=== PATIENT | female | born 1960 ===

== ENCOUNTER → 2022-02-02 11:05 | Outpatient (BNVA) | payer OTHER, SELFPAY | PROVIDERS: PCP Internal Medicine; Visit Provider Dietitian, Registered | DX: E66.9 Obesity, unspecified (principal); K76.0 Fatty (change of) liver, not elsewhere classified; Z68.36 Body mass index [BMI] 36.0-36.9, adult; Z71.3 Dietary counseling and surveillance | CPT/HCPCS: 97802 ==

== ENCOUNTER 2024-03-05 11:22 | Outpatient (AMB) | payer MEDICARE, OTHER, SELFPAY ==
--- OUTSIDE RECORDS SUMMARY | 2024-03-05 11:43 | XMS_ITS | Continuity of Care Document ---
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 Care Team Information Receive r [phone] Problems Active Problems Provider Date Essential hypertension Parmjit Funk M.D. Ons et: 09/28/2021 Gastroesophageal reflux disease Parmjit Funk M.D. Onset: 09/28/2021 Hypercholesterolemia Parmjit Funk M.D. Onset : 09/28/2021 Arthritis Parmjit Funk M.D. Onset: Celestino thyroiditis Parmjit Funk M.D. Onse t: 09/28/2021 Hyperparathyroidism Parmjit Funk M.D. Onset: 09/28/2021 Asthma Parmjit Funk M.D. Onset: Osteopenia Parmjit Funk M.D. Onset: Social History Type Date Description Comments Sex Unknown Lives With Spouse ETOH Use Denies alcohol use Tobacco Use Start: Unknown Patient has never smoked Allergies and adverse reactions Active Allergies Criticality Reaction Severity Comments Date Bactrim Unable to assess criticality Facial swelling 09/28/2021 Medications Active Medications SIG Qnty Indications Ordering Provider Date Albuterol Sulfate(2.5mg/3ML) 0.083% Nebulizer Rigo Jarquin M.D. Levothyroxine Vtzgob937bru Tablets Unknown 0 000 Fluticasone Dcuaeaqllj10bsi/Act Suspension Shake Liquid And Use 2 Sprays In Each Nostril Daily Unknown Atorvastatin Oyneikf74le Tablets Take 1 Tablet By Mouth Daily Rigo Jarquin M.D. Tbvbxfyzlk12wb Tablets Rigo Gallegos M.D. Qqmvgyohxi00sq Capsules DR Take 1 Capsule By Mouth Every Day Rigo Jarquin M.D. Metoprolol Succinate ER50mg Tablets ER 24HR Take 1 Tablet By Mouth Daily Rigo Jarquin M.D. Hmpxcxtmys45ke Tablets Take 1 Tablet By Mouth Every Day Rigo Jarquin M.D. Hydralazine PTX88je Tablets Take 1 Tablet By Mouth Twice Daily Rigo Jarquin M.D. Montelukast Kdlwlo03ya Tablets Rigo Jarquin M.D. Proair PNX694(90Base) mcg/Act Aerosol Rigo Jarquin M.D. Vital Signs Date Vital Result Comment 09/28/2021 3:38pm BP Systolic 144 mmHg BP Diastolic 86 mmHg Heart Rate 87 /min Height 63 inches 5'3 Weight 232.25 lb BMI (Body Mass Index) 41.1 kg/m2 Medical Devices Description No Information Available Encounters Type Date Location Provider Dx Diagnosis Office Visit 09/28/2021 3:30p Main Office Parmjit Funk M.D. E03.9 Hypothyroidism, unspecified G57.10 Meralgia paresthetic a, unspecified lower limb Assessments Date Code Description Provider 09/28/2021 E03.9 Hypothyroidism, unspecified Parmjit Funk M.D. 09/28/2021 G57.10 Meralgia paresthetica, unspe cified lower limb Parmjit Funk M.D. Plan of Treatment 09/28/2021 - Parmjit Funk M.D.* E03.9 Hypothyroidism, unspecified * G57.10 Meralgia paresthetica, unspecified lower limb* New Labs:* TSH With Reflex To FT4, Scheduled: 02/22/22 * Calcium, Scheduled: 02/22/22 * Albumin, Scheduled: 02/22/22 Functional Status Description No Information Available Mental Status Description No Information Available Referrals Refer to Reason for Referral Status Appt Parmjit Reeder M.D. Created [address] [place] [address] Drive [address] [place] [address] [phone]
--- OUTSIDE RECORDS SUMMARY | 2024-03-05 11:43 | XMS_ITS | Continuity of Care Document ---
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 Immunization Series Date Given Administered By Site Reaction Lot Number CVX Code Drug Industrial Maintenance Tech Status Comments Source COVID-19 (MODERNA), MRNA, LNP-S, PF, 100 MCG/0.5 ML DOSE 2 2020 207 complet ed MOD; [id number]; 1 [facility] COVID-19 (MODERNA), MRNA, LNP-S, PF, 100 MCG/0.5 ML DOSE 1 2020 207 complet ed MOD; [id number]; IELD Social History Combined list of available smoking, tobacco, and other social history from Department of Defense and Veterans Affairs facilities. Social History Type Response Date Comment Sourc e This section is an empty social history section. [facility]
[2024-03-05 11:47] VITALS: BP 152/88; PULSE 61; O2SAT 99; BMI 37.7
--- NOTE | 2024-03-05 11:47 | MHC.OFFVIS ---
Vital Signs 03/05/24 11:47 Height 5 ft 6 in Weight 233 lb 7.512 oz BMI 37.7 BP 152/88 H Blood Pressure Location Lt brachial Position Sitting Pulse 61 Pulse Source Pulse Oximeter Pulse Oximetry (%) 99 Oxygen Delivery Method Room Air Intake Visit Reasons: Raynauds Intake Note: Patient presents for follow up on Raynaud's, and both her knees. Accompanied by: Grand Child Allergies sulfamethoxazole [From Bactrim] Allergy (Mild, Verified 03/05/24 11:52) Pelvic swelling, lip swelling trimethoprim [From Bactrim] Allergy (Mild, Verified 03/05/24 11:52) Pelvic swelling, lip swelling hydrochlorothiazide Adverse Reaction (Intermediate, Verified 03/05/24 11:52) chest pains HPI HPI Raynauds: Details: She continues to have Raynaud's affecting her hands and feet with fingers turning bluish purple. She wears gloves and worms hands with hot packs with resolution of discoloration in discomfort. She continues to do PT exercises regularly. She has noted improved movement. She denies pain. She had a high co-pay for physical therapy and had to stop. She has seeked opinion from 2 orthopedic surgeons who have not recommended that she pursue knee replacement as there is no guarantee that she will have positive outcomes in improving range of motion further. She has not had a cortisone injection in her knees. [facility] Medical History (Updated 03/06/24 @ 21:56 by Jayy Denis MD) Osteopenia Celestino's disease Hyperparathyroidism Hepatic artery stenosis Asthma Osteoarthritis Morbid obesity Muscle spasm Arthralgia of left hand CKD (chronic kidney disease) Cervicalgia Surgical History (Updated 03/01/24 @ 13:21 by Courtney Paz CMA) S/P colonoscopy Family History (Updated 03/01/24 @ 13:23 by Courtney Paz CMA) Father Heart disease Rheumatoid arthritis Mother Thyroid cancer Heart disease Osteoporosis Osteoarthritis Social History (Updated 03/01/24 @ 13:24 by Courtney Paz CMA) Alcohol intake: never Patient Tobacco Use Status: Never used Tobacco Review of Systems Const All systems reviewed & are unremarkable except as noted in HPI and below Physical Exam Vital Signs: Last Vital Signs Pulse 61 03/05/24 11:47 BP 152/88 H 03/05/24 11:47 Pulse Ox 99 03/05/24 11:47 Oxygen Delivery Method Room Air 03/05/24 11:47 BMI result Body Mass Index 37.7 Const Other: General: Comfortable CVS: RRR Respiratory: clear to auscultation bilaterally. Good respiratory effort Skin: No lesions seen, no digital discoloration or ulceration MSK: Nontender bilateral knees. Right knee flexion 10 degrees, which is worsened from 04/2023 (right 60 degrees and left 90 degrees). Office Procedures AMB Joint Injection/Aspiration Coding 19842 - Bilateral Large Joint Procedure code (CPT) selection complete AMB Joint Injection/Aspiration Joint Injection/Aspiration Details: Bilateral knee joints Prep: site was prepped using aseptic technique Injected into each joint: 40 mg of, Kenalog, with 1 mL of and 1% plain lidocaine Procedure: The patient tolerated the procedure well. Postprocedure protocol was discussed with patient. Coding 23384 - Bilateral Large Joint Procedure code (CPT) selection complete Office Meds lidocaine (PF) 10 mg/mL (1 %) injection solution Performing Provider: Jayy Denis MD Performing Location: [facility] Administered by: Jayy Denis MD on 03/06/24 21:51 Dose Route Admin Location Dispensed Lot Number Expiration Date [facility] Quality Control Assistant 10 mg Infiltration 2 mL [id number] [employer] Kenalog 40 mg/mL suspension for injection Performing Provider: Jayy Denis MD Performing Location: [facility] [place] [facility] Administered by: Jayy Denis MD on 03/06/24 21:51 Dose Route Admin Location Dispensed Lot Number Expiration Date [facility] Quality Control Assistant 40 mg intra-articular 1 mL [id number] [employer] lidocaine (PF) 10 mg/mL (1 %) injection solution Performing Provider: Jayy Denis MD Performing Location: [facility] [place] [facility] Administered by: Jayy Denis MD on 03/06/24 21:51 Dose Route Admin Location Dispensed Lot Number Expiration Date [facility] Quality Control Assistant 10 mg Infiltration 2 mL [id number] [employer] Kenalog 40 mg/mL suspension for injection Performing Provider: Jayy Denis MD Performing Location: [facility] [place] [facility] Administered by: Jayy Denis MD on 03/06/24 21:51 Dose Route Admin Location Dispensed Lot Number Expiration Date [facility] Quality Control Assistant 40 mg intra-articular 1 mL [id number] [employer] Assessment & Plan Assessment & Plan (1) Osteoarthritis of knees, bilateral: Comment: She has limited range of motion, which has worsened since 04/25/2023. At this time her pain is controlled. She has completed physical therapy. In the past she has failed diclofenac gel and Tylenol. She has history of CKD with contraindication to oral NSAIDs. She has had 2 evaluations from Orthopedic surgery who do not recommend total knee replacement. Since her main issue is reduced range of motion at this time, we discussed trialing cortisone injections to try to reduce local inflammation and perhaps improve range of motion. Patient would like to proceed. Code(s): M17.0 - Bilateral primary osteoarthritis of knee Category: Medical Qualifiers: Osteoarthritis type: primary Qualified Code(s): M17.0 - Bilateral primary osteoarthritis of knee Plan: Bilateral knee cortisone injections given to patient Continue exercises learned from PT daily Return to clinic in 3 months (2) Raynaud disease without gangrene: Comment: Controlled with conservative management. Code(s): I73.00 - Raynaud's syndrome without gangrene Category: Medical Plan: Continue conservative management Return to clinic in 3 months Orders: Orders AMB Joint Injection/Aspiration 03/05/24 M17.0 - Bilateral primary osteoarthritis of knee AMB Joint Injection/Aspiration 03/05/24 M17.0 - Bilateral primary osteoarthritis of knee Coding Level of Care Code Est Pt Level 4 (07484) Complex EM visit Add On G2211 Diagnoses Primary osteoarthritis of both knees M17.0 Osteoarthritis type: primary Raynaud disease without gangrene I73.00 CPT Codes Coding - 52174 - Bilateral Large Joint: 04756 - Bilateral Large Joint ([id number]) Coding - 59575 - Bilateral Large Joint: 41236 - Bilateral Large Joint ([id number])
== END 2024-03-05 13:04 | disposition home or self-care (01) ==
LOC: HO.RHES 11:22
PROVIDERS: PCP Internal Medicine; Visit Provider Internal Medicine Rheumatology
DX: M17.0 Bilateral primary osteoarthritis of knee (principal); I73.00 Raynaud's syndrome without gangrene
CPT/HCPCS: 20610; 99214

== ENCOUNTER → 2024-03-05 11:22 | Outpatient (BNVA) | payer MEDICARE, OTHER, SELFPAY | PROVIDERS: PCP Internal Medicine; Visit Provider Internal Medicine Rheumatology | DX: I73.00 Raynaud's syndrome without gangrene (principal); M17.0 Bilateral primary osteoarthritis of knee | CPT/HCPCS: 20610; 99212; J2003; J3300 ==